=== PATIENT | male | born 1975 | race Caucasian/White ===

== ENCOUNTER 2023-02-23 09:25 | Emergency (ER) | payer OTHER ==
[~2023-02-23] VITALS: Ht 167.6 cm; Wt 78.0 kg
== END 2023-02-23 13:14 | disposition home or self-care (01) ==
LOC: ER 09:25
DX: S00.93XA Contusion of unspecified part of head, initial encounter (principal); X58.XXXA Exposure to other specified factors, initial encounter; Y93.89 Activity, other specified; Y92.89 Other specified places as the place of occurrence of the external cause; Y99.8 Other external cause status; R25.2 Cramp and spasm; Z91.018 Allergy to other foods

== ENCOUNTER 2023-12-13 19:55 | Emergency (ER) | payer OTHER ==
[~2023-12-13] VITALS: Ht 165.1 cm; Wt 86.2 kg
[2023-12-13] MEDS ORDERED: MOBIC7.5 MG PO (23:35)
== END 2023-12-14 01:45 | disposition home or self-care (01) ==
LOC: ER 19:55
DX: S80.11XA Contusion of right lower leg, initial encounter (principal); W10.8XXA Fall (on) (from) other stairs and steps, initial encounter; Y93.89 Activity, other specified; Y92.89 Other specified places as the place of occurrence of the external cause; Y99.8 Other external cause status; M51.36 Other intervertebral disc degeneration, lumbar region; Z91.018 Allergy to other foods

== ENCOUNTER 2024-01-31 22:20 | Emergency (ER) | payer OTHER ==
[~2024-01-31] VITALS: Ht 165.1 cm; Wt 85.7 kg
[~2024-01-31 22:20] MED LIST: MOBIC7.5 MG PO
[2024-01-31] MEDS ORDERED: ONDANSETRON HCL 2 MG/ML VIAL IV ONE (23:45)
[2024-01-31] MEDS ORDERED: KETOROLAC TROMETHAMINE 30 MG VIAL IV ONE (23:45)
[2024-01-31] MEDS ORDERED: 0.9 % SODIUM CHLORIDE 1,000 ML IV SCH (23:45)
[2024-02-01 00:07] LABS: HEMATOCRIT 44.6 % (39.0-48.0); HEMOGLOBIN 15.3 g/dL (13-16.00); MEAN CORPUSCULAR HEMOGLOBIN 30.1 pg (27.00-32.0); MEAN CORPUSCULAR HGB CONC 34.2 g/dl (32.0-36.0); PLATELET COUNT 266 K/uL (150-450); RED BLOOD COUNT 5.07 M/uL (4.00-6.00)
[2024-02-01 00:30] LABS: ALBUMIN 4.1 gm/dL (3.4-5.0); BILIRUBIN TOTAL 0.56 mg/dL (0.3-1.2); CALCIUM 9.3 mg/dL (8.5-10.1); CREATININE SERUM 1.37 mg/dL (0.70-1.30); GFR 55.7; GLOBULINA 4.1 G/DL (2.4-3.5); POTASSIUM 4.1 mEq/L (3.5-5.1); TOTAL PROTEIN 8.2 gm/dL (6.4-8.2)
[2024-02-01 00:37] LABS: URINE APPEARANCE Clear; URINE BILIRRUBIN Negative (NEGATIVE); URINE BLOOD Small; URINE COLOR Yellow; URINE GLUCOSE Negative (NEGATIVE); URINE LEUKOCYTE Negative; URINE NITRATE Negative; URINE PROTEIN Trace (NEGATIVE); URINE UROBILINOGEN 0.2 E.U./dl
[2024-02-01 00:41] LABS: URINE BACTERIA 16.3 uL (0.0-1933); URINE EPITHELIAL CELLS 4.3 uL (0.0-38.8); URINE RBC 35.2 uL (0.0-20.8); URINE WBC 3.8 uL (0.0-23.2)
[2024-02-01] MEDS ORDERED: KETO10TA2 PO (03:59)
[2024-02-01] MEDS ORDERED: TAMS0.4C PO (03:59)
== END 2024-02-01 04:01 ==
LOC: ER 22:20
PROVIDERS: General Practice
DX: R10.31 Right lower quadrant pain (principal); N20.1 Calculus of ureter; Z91.018 Allergy to other foods

== ENCOUNTER 2025-01-24 14:08 | Emergency (ER) | payer OTHER ==
[~2025-01-24] VITALS: Ht 167.6 cm; Wt 86.2 kg
[~2025-01-24 14:08] MED LIST changes: +KETO10TA2 PO; +TAMS0.4C PO
[2025-01-24] MEDS ORDERED: 0.9 % SODIUM CHLORIDE 1,000 ML IV STA (14:30)
[2025-01-24] MEDS ORDERED: TAMSULOSIN HCL 0.4 MG CAP PO ONE (14:30)
[2025-01-24] MEDS ORDERED: KETOROLAC TROMETHAMINE 60 MG VIAL IM ONE (14:30)
[2025-01-24 16:04] LABS: URINE APPEARANCE Clear; URINE BILIRRUBIN Negative (NEGATIVE); URINE BLOOD Negative; URINE COLOR Yellow; URINE GLUCOSE Negative (NEGATIVE); URINE KETONE Negative (NEGATIVE); URINE LEUKOCYTE Negative; URINE NITRATE Negative; URINE PROTEIN Negative (NEGATIVE); URINE UROBILINOGEN 0.2 E.U./dl
[2025-01-24 16:06] LABS: URINE BACTERIA 13.4 uL (0.0-1933)
[2025-01-24 16:07] LABS: URINE CAST 0.29 uL (0.0-1.40); URINE EPITHELIAL CELLS 0.9 uL (0.0-38.8)
[2025-01-24 16:21] LABS: HEMATOCRIT 47.8 % (39.0-48.0); MEAN CELL VOLUME 89.9 fL (80.0-100.00); MEAN CORPUSCULAR HGB CONC 33.4 g/dl (32.0-36.0); PLATELET COUNT 241 K/uL (150-450); RED BLOOD COUNT 5.32 M/uL (4.00-6.00); RED CELL DISTRIBUTION WIDTH 13.9 % (11.5-14.5)
[2025-01-24 16:36] LABS: CALCIUM 9.6 mg/dL (8.5-10.1); CREATININE SERUM 1.48 mg/dL (0.70-1.30); GFR 50.73; POTASSIUM 3.94 mEq/L (3.5-5.1)
[2025-01-24] MEDS ORDERED: CIPRO500 MG PO (17:05)
[2025-01-24] MEDS ORDERED: KETO10TA2 PO (17:05)
[2025-01-24] MEDS ORDERED: ONDANSETRON ODT8 MG PO (17:05)
[2025-01-24] MEDS ORDERED: TAMS0.4C PO (17:05)
== END 2025-01-24 17:47 | disposition home or self-care (01) ==
LOC: ER 14:11
PROVIDERS: Emergency Medicine
DX: N13.2 Hydronephrosis with renal and ureteral calculous obstruction (principal); Z91.018 Allergy to other foods